=== PATIENT | female | born 1990 | race Caucasian/White ===

== ENCOUNTER 2016-10-30 15:21 | Emergency (ER) | payer MEDICAID ==
[2016-10-30] MEDS ORDERED: KETOROLAC 30 MG/ML VIAL IM ONE (17:40)
[2016-10-30] MEDS ORDERED: ORPHENADRINE CITRATE 60MG/2ML VIAL IM ONE (17:40)
--- NOTE | 2016-10-30 17:41 | Emergency Department Record ---
History of Present Illness - General Chief complaint: Extremity Problem Stated complaint: RT SIDE HIP PAIN Time Seen by Provider: 10/30/16 15:44 Source: Patient Mode of Arrival: Ambulatory Limitations: No limitations - History of Present Illness Initial comments: pt has had l lower back, buttock and hip pain which radiates into her leg. Complaint: Extremity pain, Other (back and buttock and hip) Onset/Timin -: Week(s) Location: Right, Other History of Same: No -: Yes Myalgia Severity scale (1-10): 5 Quality: Sharp Consistency: Intermittent Improves with: Nothing Worsens with: Exertion, Palpation, Walking, Weight bearing Associated Symptoms: Denies other symptoms - Related Data Home Medications Medication Instructions Recorded Confirmed Last Taken Ranitidine HCl [Zantac] 150 mg PO BID 08/20/16 10/30/16 10/30/16 Previous Rx's Medication Instructions Recorded Cyclobenzaprine HCl [Flexeril] 10 mg PO TID #10 tablet 10/30/16 Hydrocodone/Acetaminophen [[place] 1 tab PO Q6H PRN #7 tab 10/30/16 5mg/325mg] Ibuprofen [Motrin 600Mg] 600 mg PO Q6H #20 tablet 10/30/16 Allergies Allergy/AdvReac Type Severity Reaction Status Date / Time Penicillins Allergy "both my Verified 10/30/16 15:28 parents are allergic to it" Travel Screening - Travel/Exposure Within Last 30 Days Have you traveled within the last 30 days?: No - Travel/Exposure Within Last Year Have you traveled outside the [place] in the last year?: No - Additonal Travel Details Have you been exposed to anyone with a communicable illness?: No - Travel Symptoms Symptom Screening: None Review of Systems Reviewed: No additional complaints except as noted below Constitutional: Reports: As per HPI. Denies: Chills, Fever, Malaise, Night sweats, Weakness, Weight change Eyes: Reports: As per HPI. Denies: Eye discharge, Eye pain, Photophobia, Vision change ENT: Reports: As per HPI. Denies: Congestion, Dental pain, Ear pain, Epistaxis , Hearing loss, Throat pain Respiratory: Reports: As per HPI. Denies: Cough, Dyspnea, Hemoptysis, Stridor, Wheezes Cardiovascular: Reports: As per HPI. Denies: Arrhythmia, Chest pain, Dyspnea on exertion, Edema, Murmurs, Orthopnea, Palpitations, Paroxysmal nocturnal dyspnea, Rheumatic Fever, Syncope Endocrine: Reports: As per HPI. Denies: Fatigue, Heat or cold intolerance, Polydipsia, Polyuria Gastrointestinal: Reports: As per HPI. Denies: Abdominal pain, Constipation, Diarrhea, Hematemesis, Hematochezia, Melena, Nausea, Vomiting Genitourinary: Reports: As per HPI. Denies: Abnormal menses, Discharge, Dyspareunia, Dysuria, Frequency, Hematuria, Incontinence, Retention, Urgency Musculoskeletal: Reports: As per HPI. Denies: Arthralgia, Back pain, Gout, Joint swelling, Myalgia, Neck pain Skin: Reports: As per HPI. Denies: Bruising, Change in color, Change in hair/ nails, Lesions, Pruritus, Rash Neurological: Reports: As per HPI. Denies: Abnormal gait, Confusion, Headache, Numbness, Paresthesias, Seizure, Tingling, Tremors, Vertigo, Weakness Psychiatric: Reports: As per HPI. Denies: Anxiety, Auditory hallucinations, Depression, Homicidal thoughts, Suicidal thoughts, Visual hallucinations Hematological/Lymphatic: Reports: As per HPI. Denies: Anemia, Blood Clots, Easy bleeding, Easy bruising, Swollen glands Past Medical History - SOCIAL HISTORY Smoking Status: Current every day smoker Alcohol Use: Rare Drug Use: None - RESPIRATORY Hx Respiratory Disorders: No - CARDIOVASCULAR Hx Cardio Disorders: No - NEURO Hx Neuro Disorders: No - GI Hx GI Disorders: Yes Hx Reflux: Yes - Hx Genitourinary Disorders: No - ENDOCRINE Hx Endocrine Disorders: No - MUSCULOSKELETAL Hx Musculoskeletal Disorders: No - PSYCH Hx Psych Problems: No - HEMATOLOGY/ONCOLOGY Hx Hematology/Oncology Disorders: No Family Medical History Any Significant Family History?: Yes Hx Diabetes: Father Physical Exam - General General Appearance: Alert, Oriented x3, Cooperative, Mild distress - Head Head exam: Normal inspection - Eye Eye exam: Normal appearance, PERRL, EOMI Pupils: Normal accommodation - ENT ENT exam: Normal exam, Mucous membranes moist, Normal external ear exam, Normal orophraynx Ear exam: Normal external inspection. negative: External canal tenderness Nasal Exam: Normal inspection. negative: Discharge, Sinus tenderness Mouth exam: Normal external inspection, Tongue normal Teeth exam: Normal inspection. negative: Dental caries Throat exam: Normal inspection. negative: Tonsillar erythema, Tonsillar exudate - Neck Neck exam: Normal inspection, Full ROM. negative: Tenderness - Respiratory Respiratory exam: Normal lung sounds bilaterally. negative: Respiratory distress - Cardiovascular Cardiovascular Exam: Regular rate, Normal rhythm, Normal heart sounds - GI/Abdominal GI/Abdominal exam: Soft, Normal bowel sounds. negative: Tenderness - Rectal Rectal exam: Deferred - exam: Deferred - Extremities Extremities exam: Normal inspection, Full ROM, Normal capillary refill, Tenderness (tender over r gluteus and r hip) - Back Back exam: Reports: Full ROM, Muscle spasm, Paraspinal tenderness, Tenderness. Denies: Rash noted - Neurological Neurological exam: Alert, CN II-XII intact, Normal gait, Oriented X3 - Psychiatric Psychiatric exam: Normal affect, Normal mood - Skin Skin exam: Dry, Intact, Normal color, Warm Course Vital Signs 10/30/16 15:29 Temperature 98.3 F Pulse Rate 82 Respiratory 18 Rate Blood Pressure 117/68 Pulse Ox 98 Medical Decision Making - Management Options MDM Management: Additional Work-up Planned (e.g. ADM/Transfer/OP Study) - Data Complexity MDM Data: X-Ray Ordered and/or Reviewed - Radiology Data Radiology results: Report reviewed, Image reviewed Disposition Disposition: Discharge Clinical Impression: Lumbar radiculopathy, acute Disposition: Home, Self-Care Condition: (1) Good Instructions: Lumbar Radiculopathy (ED), Core Strengthening Exercises (GEN) Additional Instructions: follow up with family doctor. return sooner if worse. have further evaluation if symptoms persist. Prescriptions: Cyclobenzaprine HCl [Flexeril] 10 mg PO TID #10 tablet Ibuprofen [Motrin 600Mg] 600 mg PO Q6H #20 tablet Hydrocodone/Acetaminophen [[place] 5mg/325mg] 1 tab PO Q6H PRN #7 tab PRN Reason: Pain - General Forms: Patient Portal Access
--- NOTE | 2016-11-02 10:18 | RADIOLOGY REPORT ---
EXAM: RIGHT HIP WITH PELVIS HISTORY: RIGHT HIP AND BACK PAIN FOR THE PAST FEW WEEKS. NO KNOWN INJURY. TECHNIQUE: An AP view of the pelvis and AP and lateral views of the right hip were obtained. Comparison: Previous CT scan of the pelvis dated 01/05/15. Encounter: Not applicable. FINDINGS: The hips are symmetric bilaterally. The joint spaces are preserved. There is no acute fracture, dislocation or significant degenerative change. The bony pelvis appears normal. An IUD is present within the right hemipelvis. This appears similar to the previous CT study. IMPRESSION: NORMAL RIGHT HIP AND PELVIS. JOB NUMBER: [id number] MTD[facility]
--- NOTE | 2016-11-02 10:21 | RADIOLOGY REPORT ---
EXAM: LUMBAR SPINE, AP AND LATERAL VIEWS HISTORY: RIGHT SIDED BACK PAIN AND HIP PAIN FOR PAST FEW WEEKS. NO KNOWN INJURY. TECHNIQUE: AP, lateral and lateral spot views of the lumbar spine were obtained. Comparison: Previous CT scan of the abdomen and pelvis dated 01/05/15. FINDINGS: There are five lumbar vertebral segments. The lumbar intervertebral disk spaces and vertebral body heights are maintained. There is no spondylolisthesis or acute fracture. No significant degenerative changes are appreciated. An IUD projects over the right hemipelvis. IMPRESSION: NORMAL LUMBAR SPINE EXAMINATION. JOB NUMBER: [id number] [employer]
== END 2016-10-30 18:04 | disposition home or self-care (01) ==
LOC: ER 15:21
DX: M54.16 Radiculopathy, lumbar region (principal); M25.551 Pain in right hip
CPT/HCPCS: 99283; 96372; 99284; 72100; 73502; J1885; J2360

== ENCOUNTER 2017-05-26 14:20 | Emergency (ER) | payer MEDICAID ==
[2017-05-26] MEDS ORDERED: DIPHENHYDRAMINE HCL 25 MG CAPSULE PO ONE (14:44)
[2017-05-26] MEDS ORDERED: METHYLPREDNISOLONE PF 125MG/VIAL IM ONE (14:44)
--- NOTE | 2017-05-26 14:50 | Emergency Department Record ---
History of Present Illness - General Chief complaint: Rash Stated complaint: RASH ON FACE/NECK Time Seen by Provider: 05/26/17 14:38 Source: Patient Mode of Arrival: Ambulatory Limitations: No limitations - History of Present Illness Initial comments: pt has a rash at hairline that itches. pt has been using a new haircare product. complaint: Rash Onset/Timin -: Days(s) Location: Face Consistency: Constant Improves with: None Worsens with: None Context: None, New medication (shampoo) Associated symptoms: Itching Treatments Prior to Arrival: None - Related Data Home Medications Medication Instructions Recorded Confirmed Last Taken Ranitidine HCl [Zantac] 150 mg PO BID 08/20/16 05/26/17 10/30/16 Allergies Allergy/AdvReac Type Severity Reaction Status Date / Time Penicillins Allergy "both my Verified 10/30/16 15:28 parents are allergic to it" Travel Screening - Travel/Exposure Within Last 30 Days Have you traveled within the last 30 days?: No Review of Systems Reviewed: No additional complaints except as noted below Constitutional: Reports: As per HPI. Denies: Chills, Fever, Malaise, Night sweats, Weakness, Weight change Eyes: Reports: As per HPI. Denies: Eye discharge, Eye pain, Photophobia, Vision change ENT: Reports: As per HPI. Denies: Congestion, Dental pain, Ear pain, Epistaxis , Hearing loss, Throat pain Respiratory: Reports: As per HPI. Denies: Cough, Dyspnea, Hemoptysis, Stridor, Wheezes Cardiovascular: Reports: As per HPI. Denies: Arrhythmia, Chest pain, Dyspnea on exertion, Edema, Murmurs, Orthopnea, Palpitations, Paroxysmal nocturnal dyspnea, Rheumatic Fever, Syncope Endocrine: Reports: As per HPI. Denies: Fatigue, Heat or cold intolerance, Polydipsia, Polyuria Gastrointestinal: Reports: As per HPI. Denies: Abdominal pain, Constipation, Diarrhea, Hematemesis, Hematochezia, Melena, Nausea, Vomiting Genitourinary: Reports: As per HPI. Denies: Abnormal menses, Discharge, Dyspareunia, Dysuria, Frequency, Hematuria, Incontinence, Retention, Urgency Musculoskeletal: Reports: As per HPI. Denies: Arthralgia, Back pain, Gout, Joint swelling, Myalgia, Neck pain Skin: Reports: As per HPI. Denies: Bruising, Change in color, Change in hair/ nails, Lesions, Pruritus, Rash Neurological: Reports: As per HPI. Denies: Abnormal gait, Confusion, Headache, Numbness, Paresthesias, Seizure, Tingling, Tremors, Vertigo, Weakness Psychiatric: Reports: As per HPI. Denies: Anxiety, Auditory hallucinations, Depression, Homicidal thoughts, Suicidal thoughts, Visual hallucinations Hematological/Lymphatic: Reports: As per HPI. Denies: Anemia, Blood Clots, Easy bleeding, Easy bruising, Swollen glands Past Medical History - SOCIAL HISTORY Smoking Status: Current every day smoker Alcohol Use: None Drug Use: None - RESPIRATORY Hx Respiratory Disorders: No - CARDIOVASCULAR Hx Cardio Disorders: No - NEURO Hx Neuro Disorders: No - GI Hx GI Disorders: Yes Hx Reflux: Yes - Hx Genitourinary Disorders: No - ENDOCRINE Hx Endocrine Disorders: No - MUSCULOSKELETAL Hx Musculoskeletal Disorders: No - PSYCH Hx Psych Problems: No - HEMATOLOGY/ONCOLOGY Hx Hematology/Oncology Disorders: No Family Medical History Any Significant Family History?: Yes Hx Diabetes: Father Physical Exam - General General Appearance: Alert, Oriented x3, Cooperative, No acute distress - Head Head exam: Normal inspection - Eye Eye exam: Normal appearance, PERRL, EOMI Pupils: Normal accommodation - ENT ENT exam: Normal exam, Mucous membranes moist, Normal external ear exam, Normal orophraynx Ear exam: Normal external inspection. negative: External canal tenderness Nasal Exam: Normal inspection. negative: Discharge, Sinus tenderness Mouth exam: Normal external inspection, Tongue normal Teeth exam: Normal inspection. negative: Dental caries Throat exam: Normal inspection. negative: Tonsillar erythema, Tonsillar exudate - Neck Neck exam: Normal inspection, Full ROM. negative: Tenderness - Respiratory Respiratory exam: Normal lung sounds bilaterally. negative: Respiratory distress - Cardiovascular Cardiovascular Exam: Regular rate, Normal rhythm, Normal heart sounds - GI/Abdominal GI/Abdominal exam: Soft, Normal bowel sounds. negative: Tenderness - Rectal Rectal exam: Deferred - exam: Deferred - Extremities Extremities exam: Normal inspection, Full ROM, Normal capillary refill. negative: Tenderness - Back Back exam: Reports: Normal inspection, Full ROM. Denies: Muscle spasm, Rash noted, Tenderness - Neurological Neurological exam: Alert, CN II-XII intact, Normal gait, Oriented X3 - Psychiatric Psychiatric exam: Normal affect, Normal mood - Skin Skin exam: Dry, Intact, Normal color, Rash, Warm Type of lesion: Rash Distribution of rash: Face Description of rash: Erythematous, Macular, Papular Course Vital Signs 05/26/17 14:24 Temperature 98.4 F Pulse Rate 60 Respiratory 18 Rate Blood Pressure 122/77 Pulse Ox 95 Disposition Disposition: Discharge Clinical Impression: Allergic dermatitis Disposition: Home, Self-Care Condition: (1) Good Instructions: Contact Dermatitis (ED) Additional Instructions: follow up with family doctor. return sooner if worse.stop hair care product. benadryl every 6 hours as needed Forms: Patient Portal Access Quality - Quality Measures Quality Measures: N/A - Blood Pressure Screening Does Patient Have Any of the Following: No Blood Pressure Classification: Pre-Hypertensive BP Reading Systolic Measurement: 122 Diastolic Measurement: 77 Screening for High Blood Pressure: < Pre-Hypertensive BP, F/U Documented > [ G8950] Pre-Hypertensive Follow-up Interventions: Follow-up with rescreen every year.
== END 2017-05-26 15:10 | disposition home or self-care (01) ==
LOC: ER 14:20
DX: L23.2 Allergic contact dermatitis due to cosmetics (principal)
CPT/HCPCS: 96372; 99283; J2930

== ENCOUNTER 2018-02-02 22:30 | Emergency (ER) | payer MEDICAID ==
[2018-02-02] MEDS ORDERED: PREDNISONE 20 MG TAB PO ONE (22:47)
--- NOTE | 2018-02-02 22:48 | Emergency Department Record ---
History of Present Illness - General Chief complaint: Rash Stated complaint: RASH BOTH SIDES AND LT LEG Time Seen by Provider: 02/02/18 22:44 Source: Patient Mode of Arrival: Ambulatory Limitations: No limitations - History of Present Illness Initial comments: The patient is here due to a 3 day hx of an itchy rash to her trunk and legs. She has recently been exposed to [facility]. She denies any new medicines, foods , or skin products. The family just got home from [facility] today. MD complaint: Rash Onset/Timin -: Days(s) - Related Data Previous Rx's Medication Instructions Recorded Prednisone [Prednisone 20Mg] 20 mg PO ASDIR #15 tab 02/02/18 Allergies Allergy/AdvReac Type Severity Reaction Status Date / Time Penicillins Allergy "both my Verified 10/30/16 15:28 parents are allergic to it" Travel Screening - Travel/Exposure Within Last 30 Days Have you traveled within the last 30 days?: No - Travel/Exposure Within Last Year Have you traveled outside the [place] in the last year?: No - Additonal Travel Details Have you been exposed to anyone with a communicable illness?: No - Travel Symptoms Symptom Screening: None Review of Systems Constitutional: Denies: Chills, Fever Eyes: Denies: Eye discharge ENT: Denies: Congestion Respiratory: Denies: Cough, Dyspnea Past Medical History - SOCIAL HISTORY Smoking Status: Current every day smoker Alcohol Use: None Drug Use: None - RESPIRATORY Hx Respiratory Disorders: No - CARDIOVASCULAR Hx Cardio Disorders: No - NEURO Hx Neuro Disorders: No - GI Hx GI Disorders: Yes Hx Reflux: Yes - Hx Genitourinary Disorders: No - ENDOCRINE Hx Endocrine Disorders: No - MUSCULOSKELETAL Hx Musculoskeletal Disorders: No - PSYCH Hx Psych Problems: No - HEMATOLOGY/ONCOLOGY Hx Hematology/Oncology Disorders: No Family Medical History Any Significant Family History?: No Hx Diabetes: Father Physical Exam - General General Appearance: Alert, Cooperative, No acute distress - Head Head exam: Atraumatic, Normocephalic, Normal inspection - Eye Eye exam: Normal appearance, PERRL - Neck Neck exam: Normal inspection, Full ROM. negative: Tenderness - Respiratory Respiratory exam: Normal lung sounds bilaterally. negative: Respiratory distress - Cardiovascular Cardiovascular Exam: Regular rate, Normal rhythm, Normal heart sounds - Extremities Extremities exam: Normal inspection, Full ROM, Normal capillary refill. negative: Tenderness - Neurological Neurological exam: Alert. negative: Motor sensory deficit - Skin Skin exam: Rash (There are scattered patches of an erythematous macular papular rash to the trunk and minimally the extremities. It presently is mild and appears to be [facility].) Course Vital Signs 02/02/18 22:38 Temperature 98 F Pulse Rate [ 76 Pulse Ox Probe] Respiratory 20 Rate Blood Pressure 113/81 [Left Arm] Pulse Ox 96 - Reevaluation(s) Reevaluation #1: I did explain to the patient she is to use an OTC antihistamine for the itching and to continue the Prednisone. She is to see her PCP if not better in 3 days. 02/02/18 22:58 Disposition Disposition: Discharge Clinical Impression: [facility] dermatitis Disposition: Home, Self-Care Condition: (2) Stable Instructions: Acute Rash (ED) Additional Instructions: Please use an OTC antihistamine for the itching and continue the Prednisone tomorrow. Please see your family doctor if not better in 3 days. Prescriptions: Prednisone [Prednisone 20Mg] 20 mg PO ASDIR #15 tab Forms: Patient Portal Access Time of Disposition: 22:49 Quality - Quality Measures Quality Measures: N/A - Blood Pressure Screening View Details: Yes Does Patient Have Any of the Following: No Blood Pressure Classification: Pre-Hypertensive BP Reading Systolic Measurement: 113 Diastolic Measurement: 81 Screening for High Blood Pressure: < Pre-Hypertensive BP, F/U Documented > [ G8950] Pre-Hypertensive Follow-up Interventions: Referral to alternative/primary care provider.
== END 2018-02-02 22:57 | disposition home or self-care (01) ==
LOC: ER 22:30
DX: L23.7 Allergic contact dermatitis due to plants, except food (principal); F17.210 Nicotine dependence, cigarettes, uncomplicated
CPT/HCPCS: 99282; J7512

== ENCOUNTER 2018-02-19 08:59 | Emergency (ER) | payer MEDICAID ==
--- NOTE | 2018-02-19 09:19 | Emergency Department Record ---
History of Present Illness - General Chief complaint: ENT Stated complaint: PATINO,SINUS PRESSURE Time Seen by Provider: 02/19/18 09:12 Source: Patient Mode of Arrival: Ambulatory - History of Present Illness Initial comments: cough and congestion for 2 days and sinus pressure with a headache and body aches and influenza going around her work place of [employer] Onset/Timin -: Days(s) Severity: Moderate Severity scale (1-10): 6 Quality: Aching, Other Consistency: Constant Improves with: None Worsens with: None Associated Symptoms: Cough, Other - Related Data Previous Rx's Medication Instructions Recorded Azithromycin 250 mg PO DAILY #6 tablet 02/19/18 Allergies Allergy/AdvReac Type Severity Reaction Status Date / Time Penicillins Allergy "both my Verified 02/19/18 09:02 parents are allergic to it" Travel Screening - Travel/Exposure Within Last 30 Days Have you traveled within the last 30 days?: No - Travel/Exposure Within Last Year Have you traveled outside the [place] in the last year?: No - Additonal Travel Details Have you been exposed to anyone with a communicable illness?: No - Travel Symptoms Symptom Screening: None Review of Systems Reviewed: No additional complaints except as noted below Constitutional: Reports: As per HPI, Malaise. Denies: Chills, Fever, Night sweats, Weakness, Weight change Eyes: Reports: As per HPI. Denies: Eye discharge, Eye pain, Photophobia, Vision change ENT: Reports: As per HPI, Congestion, Throat pain. Denies: Dental pain, Ear pain, Epistaxis, Hearing loss Respiratory: Reports: As per HPI, Cough. Denies: Dyspnea, Hemoptysis, Stridor, Wheezes Cardiovascular: Reports: As per HPI. Denies: Arrhythmia, Chest pain, Dyspnea on exertion, Edema, Murmurs, Orthopnea, Palpitations, Paroxysmal nocturnal dyspnea, Rheumatic Fever, Syncope Endocrine: Reports: As per HPI. Denies: Fatigue, Heat or cold intolerance, Polydipsia, Polyuria Gastrointestinal: Reports: As per HPI. Denies: Abdominal pain, Constipation, Diarrhea, Hematemesis, Hematochezia, Melena, Nausea, Vomiting Genitourinary: Reports: As per HPI. Denies: Abnormal menses, Discharge, Dyspareunia, Dysuria, Frequency, Hematuria, Incontinence, Retention, Urgency Musculoskeletal: Reports: As per HPI, Myalgia. Denies: Arthralgia, Back pain, Gout, Joint swelling, Neck pain Skin: Reports: As per HPI. Denies: Bruising, Change in color, Change in hair/ nails, Lesions, Pruritus, Rash Neurological: Reports: As per HPI. Denies: Abnormal gait, Confusion, Headache, Numbness, Paresthesias, Seizure, Tingling, Tremors, Vertigo, Weakness Psychiatric: Reports: As per HPI. Denies: Anxiety, Auditory hallucinations, Depression, Homicidal thoughts, Suicidal thoughts, Visual hallucinations Hematological/Lymphatic: Reports: As per HPI. Denies: Anemia, Blood Clots, Easy bleeding, Easy bruising, Swollen glands Past Medical History - SOCIAL HISTORY Smoking Status: Current every day smoker Alcohol Use: Occasional Drug Use: None - RESPIRATORY Hx Respiratory Disorders: No - CARDIOVASCULAR Hx Cardio Disorders: No - NEURO Hx Neuro Disorders: No - GI Hx GI Disorders: Yes Hx Reflux: Yes - Hx Genitourinary Disorders: No - ENDOCRINE Hx Endocrine Disorders: No - MUSCULOSKELETAL Hx Musculoskeletal Disorders: No - PSYCH Hx Psych Problems: No - HEMATOLOGY/ONCOLOGY Hx Hematology/Oncology Disorders: No Family Medical History Any Significant Family History?: Yes Hx Diabetes: Father Physical Exam - General General Appearance: Alert, Oriented x3, Cooperative, No acute distress - Head Head exam: Normal inspection - Eye Eye exam: Normal appearance, PERRL Pupils: Normal accommodation - ENT ENT exam: Normal exam, Mucous membranes moist, Normal external ear exam, Normal orophraynx, TM's normal bilaterally Ear exam: Normal external inspection. negative: External canal tenderness Nasal Exam: Normal inspection. negative: Discharge, Sinus tenderness Mouth exam: Normal external inspection, Tongue normal Teeth exam: Normal inspection. negative: Dental caries Throat exam: Normal inspection. negative: Tonsillar erythema, Tonsillar exudate - Neck Neck exam: Normal inspection, Full ROM. negative: Tenderness - Respiratory Respiratory exam: Normal lung sounds bilaterally. negative: Respiratory distress - Cardiovascular Cardiovascular Exam: Regular rate, Normal rhythm, Normal heart sounds - GI/Abdominal GI/Abdominal exam: Soft, Normal bowel sounds. negative: Tenderness - Rectal Rectal exam: Deferred - exam: Deferred - Extremities Extremities exam: Normal inspection, Full ROM, Normal capillary refill. negative: Tenderness - Back Back exam: Reports: Normal inspection, Full ROM. Denies: Muscle spasm, Rash noted, Tenderness - Neurological Neurological exam: Alert, Normal gait, Oriented X3, Reflexes normal - Psychiatric Psychiatric exam: Normal affect, Normal mood - Skin Skin exam: Dry, Intact, Normal color, Warm Course Vital Signs 02/19/18 09:03 Temperature 97.7 F Pulse Rate 94 H Respiratory 20 Rate Blood Pressure 111/62 Pulse Ox 97 Disposition Clinical Impression: Bronchitis Sinusitis Qualifiers: Sinusitis location: unspecified location Chronicity: acute Recurrence: non- recurrent Qualified Code(s): J01.90 - Acute sinusitis, unspecified Disposition: Home, Self-Care Return To Work/School Note Provided: Yes Condition: (1) Good Instructions: Sinusitis (ED) Additional Instructions: follow up with family in 5 days sooner if worse Prescriptions: Azithromycin 250 mg PO DAILY #6 tablet Forms: Patient Portal Access Time of Disposition: 09:52 Quality - Quality Measures Quality Measures: N/A - Blood Pressure Screening Does Patient Have Any of the Following: No Blood Pressure Classification: Normal BP Reading Systolic Measurement: 111 Diastolic Measurement: 62 Screening for High Blood Pressure: < Normal BP, F/U Not Required > [G8783]
[2018-02-19 09:43] LABS: INFLUENZA A NEGATIVE (NEGATIVE); INFLUENZA B NEGATIVE (NEGATIVE); STREP A SCREEN NEGATIVE (NEGATIVE)
== END 2018-02-19 10:34 | disposition home or self-care (01) ==
LOC: ER 08:59
DX: J20.9 Acute bronchitis, unspecified (principal); J01.90 Acute sinusitis, unspecified; R51 Headache; F17.210 Nicotine dependence, cigarettes, uncomplicated
CPT/HCPCS: 87400; 87880; 99282

== ENCOUNTER 2018-03-31 06:34 | Day surgery (SDC) | payer MEDICAID ==
[~2018-03-31 06:34] MED LIST: FAMOTIDINE 20MG TABLET PO ONE; METOCLOPRAMIDE 10 MG TABLET PO ONE
[2018-03-31] MEDS ORDERED: KETOROLAC 30 MG/ML VIAL IVP ONE (06:35)
[2018-03-31] MEDS ORDERED: PROPOFOL 10 MG/ML VIAL IV ONE (06:35)
[2018-03-31] MEDS ORDERED: ONDANSETRON HCL IV 4 MG/2 ML VIAL IVP ONE (06:35)
[2018-03-31] MEDS ORDERED: LIDOCAINE 1% MDV (10MG/ML) 20ML VIAL SQ ONE (06:35)
[2018-03-31] MEDS ORDERED: SEVOFLURANE 250 ML INH ONE (06:35)
[2018-03-31] MEDS ORDERED: MIDAZOLAM HCL 2MG/2ML VIAL IV ONE (06:35)
--- NOTE | 2018-03-31 19:48 | Operative Note ---
DATE OF SURGERY: 03/31/2018. PREOPERATIVE DIAGNOSIS: Retained intrauterine device. POSTOPERATIVE DIAGNOSIS: Retained intrauterine device. PROCEDURE PERFORMED: Hysteroscopic removal of intrauterine device with insertion of a new intrauterine device. ANESTHESIA: General. COMPLICATIONS: None. ESTIMATED BLOOD LOSS: Minimal. PROCEDURE: The patient was prepped for surgery and brought back to the operating suite. She was placed under general anesthesia. She was sterilely prepped and draped in the dorsal lithotomy position. A weighted speculum was placed. 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 The cervix was serially dilated to #14 German. The hysteroscope was then placed. I saw the strings immediately in the endocervical canal. I grasped the strings and removed the intrauterine device. The uterus then sounded to 12 cm. A new intrauterine device was placed. The patient was then awakened from general anesthesia and brought back to the recovery room in satisfactory condition. Sponge and instrument counts were correct. It is noted that I did cut the string on the intrauterine device approximately 2.0 cm outside the cervix. STEPH
== END 2018-03-31 08:45 | disposition home or self-care (01) ==
LOC: SUR 06:34
PROVIDERS: ATTEND Obstetrics & Gynecology
DX: T83.32XA Displacement of intrauterine contraceptive device, initial encounter (principal); Z30.014 Encounter for initial prescription of intrauterine contraceptive device
CPT/HCPCS: 81025; J1885; J2405

== ENCOUNTER 2018-05-17 14:34 | Emergency (ER) | payer MEDICAID ==
--- NOTE | 2018-05-17 14:44 | Emergency Department Record ---
History of Present Illness - General Chief Complaint: Abdominal Pain Stated Complaint: SHARP GROIN PAIN Time Seen by Provider: 05/17/18 14:41 Source: Patient Mode of Arrival: Ambulatory Limitations: No limitations - History of Present Illness Initial Comments: The patient is here due to sharp pelvic pain for 3 days. The pain is intermittent and is not associated with nausea, vomiting, diarrhea, vaginal bleeding, or discharge. She also denies any dysuria, hematuria or back pain. The patient has had a normal appetite and denies any fever. MD Complaint: Abdominal pain Onset/Timin -: Days(s) Location: Other Radiation: None Migration to: No migration Severity scale (1-10): 6 Quality: Sharp Consistency: Constant Improves With: Nothing Worsens With: Nothing Associated Symptoms: Denies other symptoms - Related Data Patient : No Previous Rx's Medication Instructions Recorded Naproxen [Naprosyn] 500 mg PO BID #14 tablet. 05/17/18 Allergies Allergy/AdvReac Type Severity Reaction Status Date / Time latex Allergy RASH Verified 03/31/18 07:13 Travel Screening - Travel/Exposure Within Last 30 Days Have you traveled within the last 30 days?: No Review of Systems Constitutional: Denies: Chills, Fever Eyes: Denies: Eye discharge ENT: Denies: Congestion Respiratory: Denies: Cough, Dyspnea Past Medical History - SOCIAL HISTORY Smoking Status: Current every day smoker - RESPIRATORY Hx Respiratory Disorders: Yes Hx Bronchitis: Yes - CARDIOVASCULAR Hx Cardio Disorders: No - NEURO Hx Neuro Disorders: No - GI Hx GI Disorders: Yes Hx Reflux: Yes (fair control) - Hx Genitourinary Disorders: No - ENDOCRINE Hx Endocrine Disorders: No - MUSCULOSKELETAL Hx Musculoskeletal Disorders: No - PSYCH Hx Psych Problems: No - HEMATOLOGY/ONCOLOGY Hx Hematology/Oncology Disorders: No Family Medical History Any Significant Family History?: Yes Hx Diabetes: Father Physical Exam - General General Appearance: Alert, Oriented x3, Cooperative, No acute distress - Head Head exam: Atraumatic, Normocephalic, Normal inspection - Eye Eye exam: Normal appearance, PERRL, EOMI - Neck Neck exam: Normal inspection, Full ROM. negative: Tenderness - Respiratory Respiratory exam: Normal lung sounds bilaterally. negative: Respiratory distress - Cardiovascular Cardiovascular Exam: Regular rate, Normal rhythm, Normal heart sounds - GI/Abdominal GI/Abdominal exam: Soft, Tenderness (There is mild diffuse lower abdominal/ pelvic tenderness to palpation but the abdomen is very soft.). negative: Rebound, Rigid - exam: Normal bimanual exam, Normal external exam, Normal speculum exam. negative: Abnormal external exam, Adnexal mass (L), Adnexal mass (R), Adnexal tenderness (L), Adnexal tenderness (R), Cervical discharge, cervical motion tenderness, Enlarged uterus, Vaginal bleeding, Vaginal discharge - Extremities Extremities exam: Normal inspection, Full ROM, Normal capillary refill. negative: Tenderness Image of Full Body: 1 - Area of pain and tenderness. - Neurological Neurological exam: Alert. negative: Motor sensory deficit Course Vital Signs 05/17/18 14:37 Temperature 98.3 F Pulse Rate 82 Respiratory 16 Rate Blood Pressure 118/79 Pulse Ox 96 - Reevaluation(s) Reevaluation #1: The patient is doing better at this time. Her pain is improved with the Toradol. 05/17/18 15:57 Reevaluation #2: The patient is doing much better at this time. Presently the pain has resolved with the Toradol and she is able to ambulate with no pain or discomfort. I did discuss the need for a pelvic US and did recommend transfer to another hospital for the test. The reason I feel she needs the test is to make sure her ovaries are normal with normal blood flow. The patient states she needs to go to work tonight so she is refusing to follow the plan for transfer. I explained to her that the risk of NOT doing the US today is that she could have an ovarian torsion, mass, or infection that could lead to ovary and the need for surgery and chronic pain. The patient has proper decision making capacity and understands and accepts the risks of refusing the transfer. She will return to the ER for any worsening symptoms. 05/17/18 16:14 Medical Decision Making - Data Complexity MDM Data: Labs Ordered and/or Reviewed - Lab Data Result diagrams: 05/17/18 15:04 05/17/18 15:04 Disposition Disposition: Discharge Clinical Impression: Pelvic pain Disposition: Home, Self-Care Condition: (1) Good Instructions: Pelvic Pain (ED) Additional Instructions: Please take the Naprosyn for pain. 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 Return to the ER for any worsening symptoms. If not better by Saturday please return to the ER for recheck and a pelvic US. Prescriptions: Naproxen [Naprosyn] 500 mg PO BID #14 tablet.dr Forms: Patient Portal Access Time of Disposition: 16:13 Quality - Quality Measures Quality Measures: N/A - Blood Pressure Screening View Details: Yes Does Patient Have Any of the Following: No Blood Pressure Classification: Normal BP Reading Systolic Measurement: 118 Diastolic Measurement: 79 Screening for High Blood Pressure: < Normal BP, F/U Not Required > [G8783]
[2018-05-17 15:12] LABS: BASO % 0.3 % (0-6); EOS % 2.7 % (0-6); GRAN % 57.4 % (47-80); HEMATOCRIT 42.4 % (35.0-47.0); HEMOGLOBIN 14.1 gm/dl (11.6-16.0); LYMPH % 31.2 % (16-45); MEAN CELL VOLUME 89.6 fl (81-97); MEAN CORPUSCULAR HEMOGLOBIN 29.8 pg (27-33); MEAN CORPUSCULAR HGB CONC 33.3 g/dl (32-36); MEAN PLATELET VOLUME 11.2 fl (7.4-10.4); MONO % 8.4 % (0-9); PLATELET COUNT 176 K/uL (130-400); RED BLOOD COUNT 4.73 M/uL (3.80-5.40); RED CELL DISTRIBUTION WIDTH 13.3 % (11.5-14.5); WHITE BLOOD COUNT W/O DIFF 10.4 K/uL (4.2-12.2)
[2018-05-17 15:21] LABS: BLOOD UREA NITROGEN 14 mg/dL (6-20); CREATININE 0.9 mg/dL (0.5-0.9); EST GLOMERULAR FILTRATION RATE > 60 mL/min
[2018-05-17 15:22] LABS: TOTAL PROTEIN 6.9 g/dL (6.6-8.7)
[2018-05-17 15:24] LABS: GLUCOSE,RANDOM 91 mg/dL (74-109)
[2018-05-17 15:27] LABS: ALB/GLOB RATIO 1.5 (1.1-1.8); ALBUMIN 4.1 g/dL (4.0-5.0); ALKALINE PHOSPHATASE 77 U/L (35-104); ALT/SGPT 12 U/L (<33); AST/SGOT 8 U/L (10.0-35.0); C-REACTIVE PROTEIN 1.41 mg/dL (<0.5)
[2018-05-17 15:30] LABS: URINE APPEARANCE SL CLOUDY; URINE BILIRUBIN NEGATIVE (NEGATIVE); URINE BLOOD NEGATIVE (NEGATIVE); URINE COLOR YELLOW; URINE GLUCOSE (UA) NEGATIVE (NEGATIVE); URINE KETONE NEGATIVE (NEGATIVE); URINE LEUKOCYTE ESTERASE NEGATIVE (NEGATIVE); URINE NITRITE NEGATIVE (NEGATIVE); URINE PROTEIN NEGATIVE (NEGATIVE)
[2018-05-17 15:33] LABS: HCG,QUALITATIVE URINE NEGATIVE (NEGATIVE)
[2018-05-17] MEDS ORDERED: KETOROLAC 30 MG/ML VIAL IM ONE (15:34)
[2018-05-19 16:21] LABS: GC SPECIMEN TYPE Vaginal
--- NOTE | 2018-05-21 07:32 | Emergency Department Record ---
History of Present Illness - General Chief Complaint: Abdominal Pain Stated Complaint: SHARP GROIN PAIN Time Seen by Provider: 05/17/18 14:41 Source: Patient Mode of Arrival: Ambulatory Limitations: No limitations - History of Present Illness Complaint: Abdominal pain Onset/Timin -: Days(s) Location: Other Radiation: None Migration to: No migration Severity scale (1-10): 6 Quality: Sharp Consistency: Constant Improves With: Nothing Worsens With: Nothing Associated Symptoms: Denies other symptoms - Related Data Patient : No Previous Rx's Medication Instructions Recorded Naproxen [Naprosyn] 500 mg PO BID #14 tablet. 05/17/18 Allergies Allergy/AdvReac Type Severity Reaction Status Date / Time latex Allergy RASH Verified 05/19/18 15:50 Travel Screening - Travel/Exposure Within Last 30 Days Have you traveled within the last 30 days?: No Review of Systems Constitutional: Denies: Chills, Fever Eyes: Denies: Eye discharge ENT: Denies: Congestion Respiratory: Denies: Cough, Dyspnea Cardiovascular: Denies: Chest pain Endocrine: Denies: Fatigue Gastrointestinal: Reports: Abdominal pain. Denies: Diarrhea, Nausea, Vomiting Genitourinary: Denies: Discharge Musculoskeletal: Denies: Back pain Skin: Denies: Bruising Past Medical History - SOCIAL HISTORY Smoking Status: Current every day smoker - RESPIRATORY Hx Respiratory Disorders: Yes Hx Bronchitis: Yes - CARDIOVASCULAR Hx Cardio Disorders: No - NEURO Hx Neuro Disorders: No - GI Hx GI Disorders: Yes Hx Reflux: Yes (fair control) - Hx Genitourinary Disorders: No - ENDOCRINE Hx Endocrine Disorders: No - MUSCULOSKELETAL Hx Musculoskeletal Disorders: No - PSYCH Hx Psych Problems: No - HEMATOLOGY/ONCOLOGY Hx Hematology/Oncology Disorders: No Family Medical History Any Significant Family History?: Yes Hx Diabetes: Father Physical Exam - General Limitations: No limitations Course Vital Signs 05/17/18 05/17/18 14:37 16:15 Temperature 98.3 F 98 F Pulse Rate 82 Pulse Rate [ 72 Pulse Ox Probe] Respiratory 16 114 H Rate Blood Pressure 118/79 Blood Pressure 114/84 [Left] Pulse Ox 96 97 Medical Decision Making - Lab Data Result diagrams: 05/17/18 15:04 05/17/18 15:04 Lab Results 05/17/18 05/17/18 05/17/18 Range/Units 15:04 15:04 15:20 WBC 10.4 (4.2-12.2) K/uL RBC 4.73 (3.80-5.40) M/uL Hgb 14.1 (11.6-16.0) gm/dl Hct 42.4 (35.0-47.0) % MCV 89.6 (81-97) fl MCH 29.8 (27-33) pg MCHC 33.3 (32-36) g/dl RDW 13.3 (11.5-14.5) % Plt Count 176 (130-400) K/uL MPV 11.2 H (7.4-10.4) fl Gran % 57.4 (47-80) % Lymphocytes % 31.2 (16-45) % Monocytes % 8.4 (0-9) % Eosinophils % 2.7 (0-6) % Basophils % 0.3 (0-6) % Sodium 139 (136-145) mmol/L Potassium 3.7 (3.4-4.5) mmol/L Chloride 103 (98-107) mmol/L Carbon Dioxide 25.0 (22-29) mmol/L Anion Gap 11.0 (7-16) BUN 14 (6-20) mg/dL Creatinine 0.9 (0.5-0.9) mg/dL Estimated GFR > 60 mL/min Random Glucose 91 (74-109) mg/dL Calcium 8.9 (8.6-10.0) mg/dL Total Bilirubin 0.20 (0.2-1.0) mg/dL AST 8 L (10.0-35.0) U/L ALT 12 (<33) U/L Alkaline Phosphatase 77 (35-104) U/L C-Reactive Protein 1.41 H (<0.5) mg/dL Total Protein 6.9 (6.6-8.7) g/dL Albumin 4.1 (4.0-5.0) g/dL Globulin 2.8 (1.4-4.8) gm/dL Albumin/Globulin Ratio 1.5 (1.1-1.8) Urine Color Yellow Urine Appearance Sl cloudy Urine pH 7.0 (5.0-8.0) Ur Specific Pana 1.020 (1.002-1.030) Urine Protein Negative (NEGATIVE) Urine Glucose (UA) Negative (NEGATIVE) Urine Ketones Negative (NEGATIVE) Urine Blood Negative (NEGATIVE) Urine Nitrite Negative (NEGATIVE) Urine Bilirubin Negative (NEGATIVE) Urine Urobilinogen 1.0 (0.20 - 1.00) E.U./dL Ur Leukocyte Esterase Negative (NEGATIVE) Urine HCG, Qual Negative (NEGATIVE) Wet Prep (NONE SEEN) Chlamydia Spec Info C.trachomatis RNA (Negative) N.gonorrhoeae DNA (JUNO) (Negative) 05/17/18 05/17/18 Range/Units 15:50 15:50 WBC (4.2-12.2) K/uL RBC (3.80-5.40) M/uL Hgb (11.6-16.0) gm/dl Hct (35.0-47.0) % MCV (81-97) fl MCH (27-33) pg MCHC (32-36) g/dl RDW (11.5-14.5) % Plt Count (130-400) K/uL MPV (7.4-10.4) fl Gran % (47-80) % Lymphocytes % (16-45) % Monocytes % (0-9) % Eosinophils % (0-6) % Basophils % (0-6) % Sodium (136-145) mmol/L Potassium (3.4-4.5) mmol/L Chloride (98-107) mmol/L Carbon Dioxide (22-29) mmol/L Anion Gap (7-16) BUN (6-20) mg/dL Creatinine (0.5-0.9) mg/dL Estimated GFR mL/min Random Glucose (74-109) mg/dL Calcium (8.6-10.0) mg/dL Total Bilirubin (0.2-1.0) mg/dL AST (10.0-35.0) U/L ALT (<33) U/L Alkaline Phosphatase (35-104) U/L C-Reactive Protein (<0.5) mg/dL Total Protein (6.6-8.7) g/dL Albumin (4.0-5.0) g/dL Globulin (1.4-4.8) gm/dL Albumin/Globulin Ratio (1.1-1.8) Urine Color Urine Appearance Urine pH (5.0-8.0) Ur Specific Pana (1.002-1.030) Urine Protein (NEGATIVE) Urine Glucose (UA) (NEGATIVE) Urine Ketones (NEGATIVE) Urine Blood (NEGATIVE) Urine Nitrite (NEGATIVE) Urine Bilirubin (NEGATIVE) Urine Urobilinogen (0.20 - 1.00) E.U./dL Ur Leukocyte Esterase (NEGATIVE) Urine HCG, Qual (NEGATIVE) Wet Prep No trich or yeast (NONE SEEN) Chlamydia Spec Info Vaginal C.trachomatis RNA Negative (Negative) N.gonorrhoeae DNA (JUNO) Negative (Negative) Disposition Clinical Impression: Pelvic pain Disposition: Home, Self-Care Condition: (1) Good Instructions: Pelvic Pain (ED) Additional Instructions: Please take the Naprosyn for pain. 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 Return to the ER for any worsening symptoms. If not better by Saturday please return to the ER for recheck and a pelvic US. Prescriptions: Naproxen [Naprosyn] 500 mg PO BID #14 tablet.dr Forms: Patient Portal Access Quality - Quality Measures Quality Measures: N/A - Blood Pressure Screening View Details: Yes Does Patient Have Any of the Following: No Blood Pressure Classification: Normal BP Reading Systolic Measurement: 118 Diastolic Measurement: 79 Screening for High Blood Pressure: < Normal BP, F/U Not Required > [G8783]
== END 2018-05-17 16:22 | disposition home or self-care (01) ==
LOC: ER 14:34
DX: R10.2 Pelvic and perineal pain (principal); F17.210 Nicotine dependence, cigarettes, uncomplicated
CPT/HCPCS: 80053; 81003; 81025; 85025; 86140; 87210; 96372; 99284; J1885

== ENCOUNTER 2018-05-19 15:30 | Emergency (ER) | payer MEDICAID ==
--- NOTE | 2018-05-19 15:50 | Emergency Department Record ---
History of Present Illness - General Chief Complaint: Recheck - Other Stated Complaint: ERIS Time Seen by Provider: 05/19/18 15:34 Source: Patient Mode of arrival: Ambulatory Limitations: No limitations - History of Present Illness Initial Comments: Pt returns for US exam that was not available on prior visit. At that time the pt had pelvic pain on presentation. "It went away with the medicine they gave me and it has not returned". No fever, discharge, bleeding. Pt with IUD that was changed in March 2018. She has no new complaint. Onset/Timin -: Days(s) Returns Today for: Other Symptoms Since Prior Visit: No new symptoms Associated Symptoms: Abdominal pain - Related Data Previous Rx's Medication Instructions Recorded Naproxen [Naprosyn] 500 mg PO BID #14 tablet. 05/17/18 Allergies Allergy/AdvReac Type Severity Reaction Status Date / Time latex Allergy RASH Verified 05/19/18 15:50 Travel Screening - Travel/Exposure Within Last 30 Days Have you traveled within the last 30 days?: No Review of Systems Constitutional: Denies: Chills, Fever, Weakness Eyes: Denies: Eye discharge, Vision change ENT: Denies: Congestion Respiratory: Denies: Cough, Dyspnea Cardiovascular: Denies: Arrhythmia, Chest pain Endocrine: Denies: Fatigue Gastrointestinal: Reports: As per HPI Genitourinary: Denies: Abnormal menses, Discharge, Dyspareunia, Dysuria, Frequency, Retention, Urgency Musculoskeletal: Denies: Arthralgia, Back pain Skin: Denies: Bruising Neurological: Denies: Abnormal gait, Headache Psychiatric: Denies: Anxiety Hematological/Lymphatic: Denies: Anemia Past Medical History - SOCIAL HISTORY Smoking Status: Current every day smoker Alcohol Use: None Drug Use: None - RESPIRATORY Hx Respiratory Disorders: Yes Hx Bronchitis: Yes - CARDIOVASCULAR Hx Cardio Disorders: No - NEURO Hx Neuro Disorders: No - GI Hx GI Disorders: Yes Hx Reflux: Yes (fair control) - Hx Genitourinary Disorders: No - ENDOCRINE Hx Endocrine Disorders: No - MUSCULOSKELETAL Hx Musculoskeletal Disorders: No - PSYCH Hx Psych Problems: No - HEMATOLOGY/ONCOLOGY Hx Hematology/Oncology Disorders: No Family Medical History Any Significant Family History?: Yes Hx Diabetes: Father Physical Exam - General General Appearance: Alert, Oriented x3, Cooperative - Head Head exam: Atraumatic - Eye Eye exam: Normal appearance, PERRL, EOMI - ENT ENT exam: Mucous membranes moist, Normal external ear exam, Normal orophraynx, TM's normal bilaterally - Neck Neck exam: Normal inspection. negative: Lymphadenopathy - Respiratory Respiratory exam: Normal lung sounds bilaterally. negative: Rhonchi, Wheezes - Cardiovascular Cardiovascular Exam: Regular rate, Normal rhythm - GI/Abdominal GI/Abdominal exam: Soft, Normal bowel sounds. negative: Guarding, Rebound, Tenderness - exam: negative: Deferred (exam performed here 2 days prior. ) - Extremities Extremities exam: Normal inspection - Back Back exam: Reports: Normal inspection - Neurological Neurological exam: Alert, Normal gait, Oriented X3 - Psychiatric Psychiatric exam: Normal affect - Skin Skin exam: Normal color Course Vital Signs 05/19/18 15:45 Temperature 98.2 F Pulse Rate 82 Respiratory 20 Rate Blood Pressure 132/71 Pulse Ox 98 - Reevaluation(s) Reevaluation #1: 05/19/18 17:24 pt returns for US exam of pelvis. IUD in uterus. Difficult exam per US tech. Pt returns from US without complaints. Has good follow up with Dr. Shabazz OB/ SALES ANALYST. Pt to see Dr. Shabazz in 1-2 days. Return to the ED sooner if worse. Medical Decision Making - Data Complexity MDM Data: EKG Ordered and/or Reviewed - Radiology Data Radiology results: Report reviewed (dominate follicle right overy, IUD in uterus , rest normal. ) Disposition Disposition: Discharge Clinical Impression: Pelvic pain Disposition: Home, Self-Care Condition: (1) Good Instructions: Abdominal Pain (ED) Additional Instructions: Follow up with Dr. Shabazz in 1-2 days. Return to the ED as needed for pain or any concern. Forms: Patient Portal Access Quality - Quality Measures Quality Measures: N/A - Blood Pressure Screening Does Patient Have Any of the Following: No Blood Pressure Classification: Pre-Hypertensive BP Reading Systolic Measurement: 132 Diastolic Measurement: 71 Screening for High Blood Pressure: < Pre-Hypertensive BP, F/U Documented > [ G8950] Pre-Hypertensive Follow-up Interventions: Follow-up with rescreen every year.
--- NOTE | 2018-05-20 16:27 | ULTRASOUND REPORT ---
DATE: 05/19/2018. EXAM: PELVIC ULTRASOUND. HISTORY: Pelvic pain for three days. TECHNIQUE: Transvaginal and transabdominal sonographic evaluation of the pelvis was performed using Grayscale imaging with the addition of color flow Doppler and spectral analysis. COMPARISON: None. ENCOUNTER: Initial. FINDINGS: The uterus measures 13.0 x 3.4 x 5.7 cm. Intrauterine device within the endometrium. The endometrial stripe measurements are within normal limits. There is a dominant follicle in the right ovary measuring 2.0 cm. There is normal arterial and venous flow to both ovaries. The right ovary measures 5.0 x 2.5 x 2.3 cm. The left ovary is not visualized. IMPRESSION: INTRAUTERINE DEVICE WITHIN THE ENDOMETRIAL CANAL. NONVISUALIZATION OF THE LEFT OVARY. DOMINANT FOLLICLE IN THE RIGHT OVARY MEASURING 2.0 CM. JOB NUMBER: [id number] MTDD
== END 2018-05-19 17:51 | disposition home or self-care (01) ==
LOC: ER 15:30
DX: R10.2 Pelvic and perineal pain (principal); F17.210 Nicotine dependence, cigarettes, uncomplicated
CPT/HCPCS: 76830; 76856; 99282

== ENCOUNTER 2018-09-03 13:01 | Emergency (ER) | payer MEDICAID ==
--- NOTE | 2018-09-03 13:31 | Emergency Department Record ---
History of Present Illness - General Chief complaint: ENT Stated complaint: SORE THROAT Time Seen by Provider: 09/03/18 13:23 Source: Patient Mode of Arrival: Ambulatory Limitations: No limitations - History of Present Illness Initial comments: The patient is here due to a ST and mild cough for 2 days. She denies any fever , chills, SOB, CP or sputum production. complaint: Sore throat Onset/Timin -: Days(s) Severity: Mild Improves with: None Worsens with: None - Related Data Previous Rx's Medication Instructions Recorded Prednisone [Prednisone 20Mg] 40 mg PO DAILY #8 tab 09/03/18 Allergies Allergy/AdvReac Type Severity Reaction Status Date / Time latex Allergy RASH Verified 09/03/18 13:19 Travel Screening - Travel/Exposure Within Last 30 Days Have you traveled within the last 30 days?: No - Travel/Exposure Within Last Year Have you traveled outside the [place] in the last year?: No - Additonal Travel Details Have you been exposed to anyone with a communicable illness?: No - Travel Symptoms Symptom Screening: None Review of Systems Constitutional: Denies: Chills, Fever Eyes: Denies: Eye discharge ENT: Reports: Throat pain. Denies: Congestion Respiratory: Reports: Cough. Denies: Dyspnea Past Medical History - SOCIAL HISTORY Smoking Status: Current every day smoker Alcohol Use: Rare Drug Use: None - RESPIRATORY Hx Respiratory Disorders: Yes Hx Bronchitis: Yes - CARDIOVASCULAR Hx Cardio Disorders: No - NEURO Hx Neuro Disorders: No - GI Hx GI Disorders: Yes Hx Reflux: Yes (fair control) - Hx Genitourinary Disorders: No - ENDOCRINE Hx Endocrine Disorders: No - MUSCULOSKELETAL Hx Musculoskeletal Disorders: No - PSYCH Hx Psych Problems: No - HEMATOLOGY/ONCOLOGY Hx Hematology/Oncology Disorders: No Family Medical History Any Significant Family History?: No Hx Diabetes: Father Physical Exam - General General Appearance: Alert, Oriented x3, Cooperative, No acute distress - Head Head exam: Atraumatic, Normocephalic, Normal inspection - Eye Eye exam: Normal appearance, PERRL, EOMI - ENT ENT exam: Normal exam, Mucous membranes moist, Normal external ear exam, Normal orophraynx, TM's normal bilaterally Throat exam: Normal inspection. negative: Tonsillar erythema, Tonsillomegaly, Tonsillar exudate - Neck Neck exam: Normal inspection, Full ROM. negative: Lymphadenopathy, Meningismus , Tenderness - Respiratory Respiratory exam: Normal lung sounds bilaterally. negative: Respiratory distress Course Vital Signs 09/03/18 13:12 Temperature 97.9 F Pulse Rate 78 Respiratory 18 Rate Blood Pressure 125/71 Pulse Ox 99 - Reevaluation(s) Reevaluation #1: I did discuss the neg Strep with the patient and the need for F/U next week if not better. 09/03/18 13:44 Medical Decision Making - Data Complexity MDM Data: Labs Ordered and/or Reviewed (Strep: Neg) Disposition Disposition: Discharge Clinical Impression: Viral URI with cough Disposition: Home, Self-Care Condition: (2) Stable Instructions: Upper Respiratory Infection (ED) Additional Instructions: Please take Tylenol or Motrin for pain and use the Prednisone as directed. Please see your family doctor if not better in 3 days. Return to the ER for any worsening symptoms. Prescriptions: Prednisone [Prednisone 20Mg] 40 mg PO DAILY #8 tab Forms: Patient Portal Access Time of Disposition: 13:46 Quality - Quality Measures Quality Measures: N/A - Blood Pressure Screening View Details: Yes Does Patient Have Any of the Following: No Blood Pressure Classification: Pre-Hypertensive BP Reading Systolic Measurement: 125 Diastolic Measurement: 71 Screening for High Blood Pressure: < Pre-Hypertensive BP, F/U Documented > [ G8950] Pre-Hypertensive Follow-up Interventions: Referral to alternative/primary care provider.
== END 2018-09-03 14:01 | disposition home or self-care (01) ==
LOC: ER 13:01
DX: J06.9 Acute upper respiratory infection, unspecified (principal); R05 Cough; F17.210 Nicotine dependence, cigarettes, uncomplicated
CPT/HCPCS: 87880; 99282

== ENCOUNTER 2018-09-16 09:18 | Emergency (ER) | payer MEDICAID ==
--- NOTE | 2018-09-16 09:27 | Emergency Department Record ---
History of Present Illness - General Chief Complaint: Cough Stated Complaint: URI Time Seen by Provider: 09/16/18 09:23 Source: Patient Mode of Arrival: Ambulatory Limitations: No limitations - History of Present Illness Initial Comments: 28 yo female presents with 2 weeks of cough. The cough is minimally productive. She has a persistent sore throat as well. She had a negative strep swab on 09/03. No rash or edema. She has some body aches. She is a smoker. MD Complaint: Cough, Nasal congestion, Sore throat -: Week(s) (2) Severity: Moderate Quality: Aching Consistency: Constant Improves With: Other Worsens With: Nothing Context: Other Associated Symptoms: Cough, Hoarseness, Nasal congestion, Sore throat Treatments Prior to Arrival: None - Related Data Previous Rx's Medication Instructions Recorded Prednisone [Prednisone 20Mg] 40 mg PO DAILY #8 tab 09/03/18 Azithromycin [Zithromax] 250 mg PO DAILY #4 tab 09/16/18 Benzonatate [Tessalon] 2 cap PO Q8H PRN #24 cap 09/16/18 Allergies Allergy/AdvReac Type Severity Reaction Status Date / Time latex Allergy RASH Verified 09/03/18 13:19 Review of Systems Constitutional: Reports: Chills, Fever ENT: Reports: Congestion, Throat pain Respiratory: Reports: Cough. Denies: Dyspnea, Hemoptysis Cardiovascular: Denies: Chest pain, Palpitations, Syncope Endocrine: Denies: Fatigue Gastrointestinal: Denies: Abdominal pain, Diarrhea, Nausea, Vomiting Genitourinary: Denies: Dysuria, Retention, Urgency Musculoskeletal: Denies: Arthralgia, Myalgia Skin: Denies: Bruising, Change in color, Rash Neurological: Denies: Headache Psychiatric: Denies: Anxiety Hematological/Lymphatic: Denies: Blood Clots, Easy bleeding, Easy bruising, Swollen glands Past Medical History - SOCIAL HISTORY Smoking Status: Current every day smoker Drug Use: None - RESPIRATORY Hx Respiratory Disorders: Yes Hx Bronchitis: Yes - CARDIOVASCULAR Hx Cardio Disorders: No - NEURO Hx Neuro Disorders: No - GI Hx GI Disorders: Yes Hx Reflux: Yes (fair control) - Hx Genitourinary Disorders: No - ENDOCRINE Hx Endocrine Disorders: No - MUSCULOSKELETAL Hx Musculoskeletal Disorders: No - PSYCH Hx Psych Problems: No - HEMATOLOGY/ONCOLOGY Hx Hematology/Oncology Disorders: No Family Medical History Hx Diabetes: Father Physical Exam - General General Appearance: Alert, Oriented x3, Cooperative, No acute distress Limitations: No limitations - Head Head exam: Atraumatic, Normal inspection - Eye Eye exam: Normal appearance. negative: Conjunctival injection - ENT ENT exam: Normal exam, Mucous membranes moist, Normal orophraynx Ear exam: Normal external inspection Nasal Exam: Discharge Mouth exam: Normal external inspection Teeth exam: Normal inspection Throat exam: Tonsillar erythema, Tonsillomegaly, Tonsillar exudate. negative: Normal inspection, R peritonsillar mass, L peritonsillar mass - Neck Neck exam: Normal inspection, Lymphadenopathy (few small mobile anterior LN), Tenderness. negative: Meningismus - Respiratory Respiratory exam: Normal lung sounds bilaterally, Other (frequent cough). negative: Accessory muscle use, Chest wall tenderness, Prolonged expiratory, Respiratory distress, Rhonchi, Stridor, Wheezes - Cardiovascular Cardiovascular Exam: Regular rate, Normal rhythm, Normal heart sounds - Rectal Rectal exam: Deferred - exam: Deferred - Extremities Extremities exam: Normal inspection - Back Back exam: Denies: CVA tenderness (R), CVA tenderness (L) - Neurological Neurological exam: Alert, Normal gait, Oriented X3 - Psychiatric Psychiatric exam: Normal affect, Normal mood. negative: Agitated, Anxious - Skin Skin exam: Dry, Intact, Normal color, Warm Course - Reevaluation(s) Reevaluation #1: EMR reviewed Strep Negative on 09/0309/16/18 09:25 No significant abnormalities on vitals 09/16/18 09:38 09/16/18 10:04 The influenza are negative Disposition Disposition: Discharge Clinical Impression: Tonsillitis, Bronchitis Disposition: Home, Self-Care Condition: (1) Good Instructions: Acute Bronchitis (ED), Tonsillitis (ED) Additional Instructions: Rest and stay hydrated Tylenol or Motrin for discomfort Call your doctor for close follow up this week if not improving Take the prescriptions as directed Prescriptions: Azithromycin [Zithromax] 250 mg PO DAILY #4 tab Benzonatate [Tessalon] 2 cap PO Q8H PRN #24 cap PRN Reason: Cough Forms: Patient Portal Access Time of Disposition: 09:46 Quality - Quality Measures Quality Measures: N/A - Blood Pressure Screening Does Patient Have Any of the Following: No Blood Pressure Classification: Pre-Hypertensive BP Reading Systolic Measurement: 124 Diastolic Measurement: 79 Screening for High Blood Pressure: < Pre-Hypertensive BP, F/U Documented > [ G8950] Pre-Hypertensive Follow-up Interventions: Referral to alternative/primary care provider.
[2018-09-16] MEDS ORDERED: AZITHROMYCIN 500 MG TABLET PO ONE (09:35)
[2018-09-16] MEDS ORDERED: BENZONATATE 100 MG CAPSULE PO ONE (09:35)
[2018-09-16] MEDS ORDERED: DEXAMETHASONE SOD PHOSPHATE 10MG/ML VIAL PO ONE (09:35)
[2018-09-16 09:56] LABS: INFLUENZA A NEGATIVE (NEGATIVE); INFLUENZA B NEGATIVE (NEGATIVE)
== END 2018-09-16 10:25 | disposition home or self-care (01) ==
LOC: ER 09:18
DX: J20.9 Acute bronchitis, unspecified (principal); J03.90 Acute tonsillitis, unspecified; F17.210 Nicotine dependence, cigarettes, uncomplicated
CPT/HCPCS: 87400; 99282

== ENCOUNTER 2018-09-20 20:57 | Emergency (ER) | payer MEDICAID ==
[2018-09-20 21:31] LABS: URINE APPEARANCE CLEAR; URINE BILIRUBIN NEGATIVE (NEGATIVE); URINE BLOOD NEGATIVE (NEGATIVE); URINE COLOR DARK YELLOW; URINE GLUCOSE (UA) NEGATIVE (NEGATIVE); URINE KETONE 40 mg/dL (NEGATIVE)
[2018-09-20 21:32] LABS: HCG,QUALITATIVE URINE NEGATIVE (NEGATIVE); URINE LEUKOCYTE ESTERASE NEGATIVE (NEGATIVE); URINE NITRITE NEGATIVE (NEGATIVE); URINE PROTEIN TRACE (NEGATIVE); URINE UROBILINOGEN 0.2 E.U./dL (0.20 - 1.00)
[2018-09-20 21:33] LABS: URINE BACTERIA FEW; URINE EPITHELIAL CELLS >50 (FEW); URINE MUCUS HEAVY; URINE RBC 0 - 2 (NONE SEEN); URINE WBC 0 - 2 (0-2/hpf)
[2018-09-20 21:52] LABS: HEMATOCRIT 45.6 % (35.0-47.0); HEMOGLOBIN 15.7 gm/dl (11.6-16.0); MEAN CELL VOLUME 88.7 fl (81-97); MEAN CORPUSCULAR HEMOGLOBIN 30.5 pg (27-33); MEAN CORPUSCULAR HGB CONC 34.4 g/dl (32-36); MEAN PLATELET VOLUME 10.6 fl (7.4-10.4); PLATELET COUNT 223 K/uL (130-400); RED BLOOD COUNT 5.14 M/uL (3.80-5.40); RED CELL DISTRIBUTION WIDTH 14.1 % (11.5-14.5); WHITE BLOOD COUNT W/O DIFF 16.4 K/uL (4.2-12.2)
[2018-09-20] MEDS: ONDANSETRON HCL IV 4 MG/2 ML VIAL IV ONE (21:52)
[2018-09-20] MEDS: 0.9 % SODIUM CHLORIDE 1,000 ML BAG IV ONE ×2 (21:52→22:50)
[2018-09-20 22:06] LABS: BLOOD UREA NITROGEN 18 mg/dL (6-20); CREATININE 0.8 mg/dL (0.5-0.9); EST GLOMERULAR FILTRATION RATE > 60 mL/min
[2018-09-20 22:07] LABS: TOTAL PROTEIN 7.6 g/dL (6.6-8.7)
[2018-09-20 22:09] LABS: GLUCOSE,RANDOM 87 mg/dL (74-109)
[2018-09-20 22:11] LABS: ALB/GLOB RATIO 1.3 (1.1-1.8); ALBUMIN 4.3 g/dL (4.0-5.0); ALKALINE PHOSPHATASE 86 U/L (35-104); ALT/SGPT 18 U/L (<33); AST/SGOT 9 U/L (10.0-35.0); LIPASE 26 U/L (13-60)
[2018-09-20 22:45] LABS: ROTOVIRUS NOT DETECTED (NOT DETECT)
[2018-09-20] MEDS: ONDANSETRON HCL IV 4 MG/2 ML VIAL IVP ONE (22:50)
[2018-09-20] MEDS: KETOROLAC 30 MG/ML VIAL IVP ONE (22:51)
[2018-09-20 23:08] LABS: CRYPTOSPORIDIUM PARVUM ANTIGEN NOT DETECTED (NOT DETECT)
[2018-09-20 23:09] LABS: GIARDIA LAMBLIA ANTIGEN NOT DETECTED (NOT DETECT)
[2018-09-20 23:23] LABS: MOLECULAR C DIFF TOXIN SCREEN NOT DETECTED (NOT DETECT)
--- NOTE | 2018-09-20 23:37 | Emergency Department Record ---
History of Present Illness - General Chief Complaint: Abdominal Pain Stated Complaint: ABD PAIN AND VOMITING Time Seen by Provider: 09/20/18 21:10 Mode of Arrival: Ambulatory - History of Present Illness Onset/Timin -: Hour(s) Location: Epigastric Radiation: None Migration to: No migration Severity: Severe Severity scale (1-10): 10 Quality: Sharp, Stabbing Consistency: Constant Improves With: Vomiting Context: Recent antibiotic use Associated Symptoms: Diarrhea, Nausea, Vomiting - Related Data LMP (females 10-50): 3 weeks ago Patient : No Previous Rx's Medication Instructions Recorded Prednisone [Prednisone 20Mg] 40 mg PO DAILY #8 tab 09/03/18 Azithromycin [Zithromax] 250 mg PO DAILY #4 tab 09/16/18 Benzonatate [Tessalon] 2 cap PO Q8H PRN #24 cap 09/16/18 Ondansetron [Zofran Odt] 4 mg PO Q8H #7 tab.rapdis 09/20/18 Allergies Allergy/AdvReac Type Severity Reaction Status Date / Time latex Allergy RASH Verified 09/03/18 13:19 Travel Screening - Travel/Exposure Within Last 30 Days Have you traveled within the last 30 days?: No - Travel Symptoms Symptom Screening: Diarrhea, Vomiting, Stomach Pain Past Medical History - SOCIAL HISTORY Smoking Status: Current every day smoker Alcohol Use: Rare Drug Use: None - RESPIRATORY Hx Respiratory Disorders: Yes Hx Bronchitis: Yes - CARDIOVASCULAR Hx Cardio Disorders: No - NEURO Hx Neuro Disorders: No - GI Hx GI Disorders: Yes Hx Reflux: Yes (fair control) - Hx Genitourinary Disorders: No - ENDOCRINE Hx Endocrine Disorders: No - MUSCULOSKELETAL Hx Musculoskeletal Disorders: No - PSYCH Hx Psych Problems: No - HEMATOLOGY/ONCOLOGY Hx Hematology/Oncology Disorders: No Family Medical History Any Significant Family History?: Yes Hx Diabetes: Father Course Vital Signs 09/20/18 09/20/18 21:08 22:43 Temperature 97.7 F 98.6 F Pulse Rate 103 H Pulse Rate [ 103 H Pulse Ox Probe] Respiratory 16 18 Rate Blood Pressure 100/69 Blood Pressure 123/67 [Left Arm] Pulse Ox 99 100 - Reevaluation(s) Reevaluation #1: 09/20/18 23:32 pt feels better Reevaluation #2: 09/20/18 23:37 pt is finished w zithromax Medical Decision Making - Lab Data Result diagrams: 09/20/18 21:47 09/20/18 21:47 Lab Results 09/20/18 09/20/18 09/20/18 Range/Units 21:27 21:47 21:47 WBC 16.4 H (4.2-12.2) K/uL RBC 5.14 (3.80-5.40) M/uL Hgb 15.7 (11.6-16.0) gm/dl Hct 45.6 (35.0-47.0) % MCV 88.7 (81-97) fl MCH 30.5 (27-33) pg MCHC 34.4 (32-36) g/dl RDW 14.1 (11.5-14.5) % Plt Count 223 (130-400) K/uL MPV 10.6 H (7.4-10.4) fl Neutrophils % 80.0 (47-80) % Eosinophils % Not Reportable Basophils % Not Reportable Lymphocytes 14.0 L (16-45) % Monocytes 5.0 (0-9) % Eosinophil Count 1.0 (0-6) % Sodium 140 (136-145) mmol/L Potassium 3.7 (3.4-4.5) mmol/L Chloride 101 (98-107) mmol/L Carbon Dioxide 28.0 (22-29) mmol/L Anion Gap 11.0 (7-16) BUN 18 (6-20) mg/dL Creatinine 0.8 (0.5-0.9) mg/dL Estimated GFR > 60 mL/min Random Glucose 87 (74-109) mg/dL Calcium 9.4 (8.6-10.0) mg/dL Total Bilirubin 0.80 (0.2-1.0) mg/dL AST 9 L (10.0-35.0) U/L ALT 18 (<33) U/L Alkaline Phosphatase 86 (35-104) U/L Total Protein 7.6 (6.6-8.7) g/dL Albumin 4.3 (4.0-5.0) g/dL Globulin 3.3 (1.4-4.8) gm/dL Albumin/Globulin Ratio 1.3 (1.1-1.8) Lipase 26 (13-60) U/L Urine Color Dark yellow Urine Appearance Clear Urine pH 6.0 (5.0-8.0) Ur Specific [place] 1.030 (1.002-1.030) Urine Protein Trace H (NEGATIVE) Urine Glucose (UA) Negative (NEGATIVE) Urine Ketones 40 mg/dl H (NEGATIVE) Urine Blood Negative (NEGATIVE) Urine Nitrite Negative (NEGATIVE) Urine Bilirubin Negative (NEGATIVE) Urine Urobilinogen 0.2 (0.20 - 1.00) E.U./dL Ur Leukocyte Esterase Negative (NEGATIVE) Urine RBC 0 - 2 (NONE SEEN) Urine WBC 0 - 2 (0-2/hpf) Ur Epithelial Cells >50 (FEW) Urine Bacteria Few Urine Mucus Heavy Urine HCG, Qual Negative (NEGATIVE) Stool Occult Blood (NEGATIVE) Stool for White Cells (NO WBC'S) Rotavirus Antigen (NOT DETECT) C. difficile Ag & Toxin (NOT DETECT) Cryptosporid parvum Ag (NOT DETECT) Giardia lamblia Ag (NOT DETECT) 09/20/18 09/20/18 09/20/18 Range/Units 22:00 22:00 22:00 WBC (4.2-12.2) K/uL RBC (3.80-5.40) M/uL Hgb (11.6-16.0) gm/dl Hct (35.0-47.0) % MCV (81-97) fl MCH (27-33) pg MCHC (32-36) g/dl RDW (11.5-14.5) % Plt Count (130-400) K/uL MPV (7.4-10.4) fl Neutrophils % (47-80) % Eosinophils % Basophils % Lymphocytes (16-45) % Monocytes (0-9) % Eosinophil Count (0-6) % Sodium (136-145) mmol/L Potassium (3.4-4.5) mmol/L Chloride (98-107) mmol/L Carbon Dioxide (22-29) mmol/L Anion Gap (7-16) BUN (6-20) mg/dL Creatinine (0.5-0.9) mg/dL Estimated GFR mL/min Random Glucose (74-109) mg/dL Calcium (8.6-10.0) mg/dL Total Bilirubin (0.2-1.0) mg/dL AST (10.0-35.0) U/L ALT (<33) U/L Alkaline Phosphatase (35-104) U/L Total Protein (6.6-8.7) g/dL Albumin (4.0-5.0) g/dL Globulin (1.4-4.8) gm/dL Albumin/Globulin Ratio (1.1-1.8) Lipase (13-60) U/L Urine Color Urine Appearance Urine pH (5.0-8.0) Ur Specific [place] (1.002-1.030) Urine Protein (NEGATIVE) Urine Glucose (UA) (NEGATIVE) Urine Ketones (NEGATIVE) Urine Blood (NEGATIVE) Urine Nitrite (NEGATIVE) Urine Bilirubin (NEGATIVE) Urine Urobilinogen (0.20 - 1.00) E.U./dL Ur Leukocyte Esterase (NEGATIVE) Urine RBC (NONE SEEN) Urine WBC (0-2/hpf) Ur Epithelial Cells (FEW) Urine Bacteria Urine Mucus Urine HCG, Qual (NEGATIVE) Stool Occult Blood Negative (NEGATIVE) Stool for White Cells No wbc's observed (NO WBC'S) Rotavirus Antigen Not detected (NOT DETECT) C. difficile Ag & Toxin Not detected (NOT DETECT) Cryptosporid parvum Ag Not detected (NOT DETECT) Giardia lamblia Ag Not detected (NOT DETECT) Disposition Disposition: Discharge Clinical Impression: Dehydration Vomiting Qualifiers: Vomiting type: unspecified Vomiting Intractability: non-intractable Nausea presence: with nausea Qualified Code(s): R11.2 - Nausea with vomiting, unspecified Diarrhea Qualifiers: Diarrhea type: infectious Qualified Code(s): A09 - Infectious gastroenteritis and colitis, unspecified Disposition: Home, Self-Care Condition: (1) Good Instructions: Acute Nausea and Vomiting (ED), Acute Diarrhea (ED) Additional Instructions: follow up with family doctor. return sooner if worse. push fluids. Prescriptions: Ondansetron [Zofran Odt] 4 mg PO Q8H #7 tab.rapdis Quality - Quality Measures Quality Measures: N/A - Blood Pressure Screening Does Patient Have Any of the Following: No Blood Pressure Classification: Normal BP Reading Systolic Measurement: 100 Diastolic Measurement: 69 Screening for High Blood Pressure: < Normal BP, F/U Not Required > [G8783]
== END 2018-09-20 23:50 | disposition home or self-care (01) ==
LOC: ER 20:57
DX: A09 Infectious gastroenteritis and colitis, unspecified (principal); E86.0 Dehydration; R10.13 Epigastric pain; R11.2 Nausea with vomiting, unspecified; F17.210 Nicotine dependence, cigarettes, uncomplicated
CPT/HCPCS: 99284 ×2; 96376; 96374; 96375; 96361; 83690; 87329; 80053; 81001; 89055; 87425; 81025; 87427; 82272; 87493; 85027; J1885; J2405; J7030

== ENCOUNTER 2018-11-28 09:00 | Emergency (ER) | payer MEDICAID ==
--- NOTE | 2018-11-28 09:26 | Emergency Department Record ---
History of Present Illness - General Chief complaint: Abscess Stated complaint: BOIL ON LEFT BREAST Time Seen by Provider: 11/28/18 09:15 Source: Patient Mode of Arrival: Ambulatory Limitations: No limitations - History of Present Illness Initial comments: pt had small sore on nipple of l breast that started draining. pt concerned because her mom from breast cancer complaint: Abscess/boil Onset/Timin -: Days(s) Location: Chest Severity: Mild Quality: Aching Consistency: Constant Improves with: None Worsens with: Palpation Associated symptoms: Denies other symptoms Treatments Prior to Arrival: None - Related Data Home Medications Medication Instructions Recorded Confirmed Last Taken Cyclobenzaprine HCl [Flexeril] 5 mg PO TID 11/28/18 11/28/18 Unknown Previous Rx's Medication Instructions Recorded Cephalexin [Keflex] 500 mg PO TID #30 cap 11/28/18 Allergies Allergy/AdvReac Type Severity Reaction Status Date / Time latex Allergy RASH Verified 09/03/18 13:19 Travel Screening - Travel/Exposure Within Last 30 Days Have you traveled within the last 30 days?: No Review of Systems Reviewed: No additional complaints except as noted below Constitutional: Reports: As per HPI. Denies: Chills, Fever, Malaise, Night sweats, Weakness, Weight change Eyes: Reports: As per HPI. Denies: Eye discharge, Eye pain, Photophobia, Vision change ENT: Reports: As per HPI. Denies: Congestion, Dental pain, Ear pain, Epistaxis , Hearing loss, Throat pain Respiratory: Reports: As per HPI. Denies: Cough, Dyspnea, Hemoptysis, Stridor, Wheezes Cardiovascular: Reports: As per HPI. Denies: Arrhythmia, Chest pain, Dyspnea on exertion, Edema, Murmurs, Orthopnea, Palpitations, Paroxysmal nocturnal dyspnea, Rheumatic Fever, Syncope Endocrine: Reports: As per HPI. Denies: Fatigue, Heat or cold intolerance, Polydipsia, Polyuria Gastrointestinal: Reports: As per HPI. Denies: Abdominal pain, Constipation, Diarrhea, Hematemesis, Hematochezia, Melena, Nausea, Vomiting Genitourinary: Reports: As per HPI. Denies: Abnormal menses, Discharge, Dyspareunia, Dysuria, Frequency, Hematuria, Incontinence, Retention, Urgency Musculoskeletal: Reports: As per HPI. Denies: Arthralgia, Back pain, Gout, Joint swelling, Myalgia, Neck pain Skin: Reports: As per HPI. Denies: Bruising, Change in color, Change in hair/ nails, Lesions, Pruritus, Rash Neurological: Reports: As per HPI. Denies: Abnormal gait, Confusion, Headache, Numbness, Paresthesias, Seizure, Tingling, Tremors, Vertigo, Weakness Psychiatric: Reports: As per HPI. Denies: Anxiety, Auditory hallucinations, Depression, Homicidal thoughts, Suicidal thoughts, Visual hallucinations Hematological/Lymphatic: Reports: As per HPI. Denies: Anemia, Blood Clots, Easy bleeding, Easy bruising, Swollen glands Past Medical History - SOCIAL HISTORY Smoking Status: Current every day smoker - RESPIRATORY Hx Respiratory Disorders: Yes Hx Bronchitis: Yes - CARDIOVASCULAR Hx Cardio Disorders: No - NEURO Hx Neuro Disorders: No - GI Hx GI Disorders: Yes Hx Reflux: Yes (fair control) - Hx Genitourinary Disorders: No - ENDOCRINE Hx Endocrine Disorders: No - MUSCULOSKELETAL Hx Musculoskeletal Disorders: No - PSYCH Hx Psych Problems: No - HEMATOLOGY/ONCOLOGY Hx Hematology/Oncology Disorders: No Family Medical History Any Significant Family History?: Yes Hx Cancer: Mother *Cancer Comment: breast cancer Hx Diabetes: Father Physical Exam - General General Appearance: Alert, Oriented x3, Cooperative, Mild distress - Head Head exam: Normal inspection - Eye Eye exam: Normal appearance, PERRL, EOMI Pupils: Normal accommodation - ENT ENT exam: Normal exam, Mucous membranes moist, Normal external ear exam, Normal orophraynx Ear exam: Normal external inspection. negative: External canal tenderness Nasal Exam: Normal inspection. negative: Discharge, Sinus tenderness Mouth exam: Normal external inspection, Tongue normal Teeth exam: Normal inspection. negative: Dental caries Throat exam: Normal inspection. negative: Tonsillar erythema, Tonsillar exudate - Neck Neck exam: Normal inspection, Full ROM. negative: Tenderness - Respiratory Respiratory exam: Normal lung sounds bilaterally, Chest wall tenderness. negative: Respiratory distress - Cardiovascular Cardiovascular Exam: Regular rate, Normal rhythm, Normal heart sounds - GI/Abdominal GI/Abdominal exam: Soft, Normal bowel sounds. negative: Tenderness - Rectal Rectal exam: Deferred - exam: Deferred - Extremities Extremities exam: Normal inspection, Full ROM, Normal capillary refill. negative: Tenderness - Back Back exam: Reports: Normal inspection, Full ROM. Denies: Muscle spasm, Rash noted, Tenderness - Neurological Neurological exam: Alert, CN II-XII intact, Normal gait, Oriented X3 - Psychiatric Psychiatric exam: Normal affect, Normal mood - Skin Skin exam: Dry, Intact, Normal color, Warm Type of lesion: Abscess, Other (small open lesion w slight erytema, approx 1cm) Distribution of rash: Chest Course Vital Signs 11/28/18 09:04 Temperature 98.2 F Pulse Rate 64 Respiratory 20 Rate Blood Pressure 134/74 Pulse Ox 99 Disposition Disposition: Discharge Clinical Impression: Abscess Disposition: Home, Self-Care Condition: (1) Good Instructions: Abscess (ED) Additional Instructions: follow up with family doctor and have a mammogram. return sooner if worse. warm soaks Prescriptions: Cephalexin [Keflex] 500 mg PO TID #30 cap Quality - Quality Measures Quality Measures: N/A - Blood Pressure Screening Does Patient Have Any of the Following: No Blood Pressure Classification: Pre-Hypertensive BP Reading Systolic Measurement: 134 Diastolic Measurement: 74 Screening for High Blood Pressure: < Pre-Hypertensive BP, F/U Documented > [ G8950] Pre-Hypertensive Follow-up Interventions: Follow-up with rescreen every year.
== END 2018-11-28 09:38 | disposition home or self-care (01) ==
LOC: ER 09:00
DX: N61.1 Abscess of the breast and nipple (principal); F17.210 Nicotine dependence, cigarettes, uncomplicated
CPT/HCPCS: 99282

== ENCOUNTER 2019-05-16 12:42 | Emergency (ER) | payer MEDICAID ==
--- NOTE | 2019-05-16 13:03 | Emergency Department Record ---
History of Present Illness - General Chief Complaint: Abdominal Pain Stated Complaint: ABD PAIN Time Seen by Provider: 05/16/19 12:51 Source: Patient Mode of Arrival: Ambulatory Limitations: No limitations - History of Present Illness Initial Comments: The patient is here due to a 14 hour hx of sharp stabbing pelvic pain. The pain is intermittent and is much worse with any movement or walking and intermittently radiates up into the abdomen. She denies any vaginal discharge, bleeding, dysuria, fever, chills, nausea, or vomiting. Additionally the patient has had a normal appetite today. The patient has no hx of any abdominal surgeries but does have an IUD. MD Complaint: Other Onset/Timin -: Hour(s) Location: Suprapubic Radiation: None Migration to: No migration Severity: Moderate Severity scale (1-10): 7 Quality: Sharp Consistency: Intermittent Worsens With: Movement Associated Symptoms: Denies other symptoms - Related Data LMP (females 10-50): Unknown Previous Rx's Medication Instructions Recorded Naproxen [Naprosyn] 250 mg PO BID #14 tablet 05/16/19 Allergies Allergy/AdvReac Type Severity Reaction Status Date / Time latex Allergy RASH Verified 05/16/19 12:56 Travel Screening - Travel/Exposure Within Last 30 Days Have you traveled within the last 30 days?: No Review of Systems Constitutional: Denies: Chills, Fever Eyes: Denies: Eye discharge ENT: Denies: Congestion Respiratory: Denies: Cough, Dyspnea Past Medical History - SOCIAL HISTORY Smoking Status: Current every day smoker Alcohol Use: None Drug Use: None - RESPIRATORY Hx Respiratory Disorders: Yes Hx Bronchitis: Yes - CARDIOVASCULAR Hx Cardio Disorders: No - NEURO Hx Neuro Disorders: No - GI Hx GI Disorders: Yes Hx Reflux: Yes (fair control) - Hx Genitourinary Disorders: No - ENDOCRINE Hx Endocrine Disorders: No - MUSCULOSKELETAL Hx Musculoskeletal Disorders: No - PSYCH Hx Psych Problems: No - HEMATOLOGY/ONCOLOGY Hx Hematology/Oncology Disorders: No Family Medical History Any Significant Family History?: Yes Hx Cancer: Mother *Cancer Comment: breast cancer Hx Diabetes: Father Physical Exam - General General Appearance: Alert, Oriented x3, Cooperative, No acute distress - Head Head exam: Atraumatic, Normocephalic - Eye Eye exam: Normal appearance, PERRL - Neck Neck exam: Normal inspection, Full ROM. negative: Tenderness - Respiratory Respiratory exam: Normal lung sounds bilaterally. negative: Respiratory distress - Cardiovascular Cardiovascular Exam: Regular rate, Normal rhythm, Normal heart sounds - GI/Abdominal GI/Abdominal exam: Soft, Tenderness (There is diffuse mild lower abdominal tenderness.). negative: Distended, Guarding, Rebound, Rigid - exam: Normal bimanual exam, Normal external exam, Normal speculum exam. negative: Abnormal external exam, Adnexal mass (L), Adnexal mass (R), Adnexal tenderness (L), Adnexal tenderness (R), Cervical discharge, cervical motion tenderness, Enlarged uterus, Vaginal bleeding, Vaginal discharge, Vaginal erythema - Extremities Extremities exam: Normal inspection, Full ROM, Normal capillary refill. negative: Tenderness - Neurological Neurological exam: Alert. negative: Motor sensory deficit Course Vital Signs 05/16/19 12:51 Temperature 97.8 F Pulse Rate 73 Respiratory 20 Rate Blood Pressure 112/70 Pulse Ox 97 - Reevaluation(s) Reevaluation #1: The patient is resting comfortably at this time and did receive a Toradol shot. Due to the pelvic pain I do feel she will need a pelvic US but since we are not able to perform that here I did recommend transfer to a larger hospital. The patient chose [facility] so I did discuss the case with Dr. Rios in the ER and he did accept the patient in an ER to ER transfer. 05/16/19 13:39 Reevaluation #2: The patient is doing better at this time and the pain is much improved with the Toradol. 05/16/19 13:46 Medical Decision Making - Lab Data Result diagrams: 05/16/19 13:05 05/16/19 13:05 Disposition Disposition: Transfer Clinical Impression: Pelvic pain Disposition: Acute Care Hospital Transfer Transfer To: [facility] Reason For Transfer: US Accepting Physician: Gabriel Time Discussed w/Accepting Physician: 13:41 Condition: (2) Stable Additional Instructions: Please proceed directly to the ER at [facility] for further evaluation and a pelvic US. Do not eat or drink on the way. Prescriptions: Naproxen [Naprosyn] 250 mg PO BID #14 tablet Forms: Patient Portal Access Time of Disposition: 13:41 Quality - Quality Measures Quality Measures: N/A - Blood Pressure Screening View Details: Yes Does Patient Have Any of the Following: No Blood Pressure Classification: Normal BP Reading Systolic Measurement: 112 Diastolic Measurement: 70 Screening for High Blood Pressure: < Normal BP, F/U Not Required > [G6109]
[2019-05-16 13:19] LABS: ABSOLUTE NEUTROPHIL COUNT 6.35; BASO % 0.2 % (0-6); EOS % 1.1 % (0-6); GRAN % 63.1 % (47-80); HEMATOCRIT 41.6 % (35.0-47.0); HEMOGLOBIN 14.3 gm/dl (11.6-16.0); LYMPH % 26.3 % (16-45); MEAN CELL VOLUME 86.8 fl (81-97); MEAN CORPUSCULAR HEMOGLOBIN 29.9 pg (27-33); MEAN CORPUSCULAR HGB CONC 34.4 g/dl (32-36); MEAN PLATELET VOLUME 11.2 fl (7.4-10.4); MONO % 9.3 % (0-9); PLATELET COUNT 189 K/uL (130-400); RED BLOOD COUNT 4.79 M/uL (3.80-5.40); RED CELL DISTRIBUTION WIDTH 13.7 % (11.5-14.5); WHITE BLOOD COUNT W/O DIFF 10.1 K/uL (4.2-12.2)
[2019-05-16 13:21] LABS: URINE APPEARANCE CLEAR; URINE BILIRUBIN NEGATIVE (NEGATIVE); URINE BLOOD NEGATIVE (NEGATIVE); URINE COLOR YELLOW; URINE GLUCOSE (UA) NEGATIVE (NEGATIVE); URINE KETONE NEGATIVE (NEGATIVE); URINE LEUKOCYTE ESTERASE TRACE (NEGATIVE); URINE NITRITE NEGATIVE (NEGATIVE); URINE PROTEIN NEGATIVE (NEGATIVE)
[2019-05-16 13:28] LABS: BLOOD UREA NITROGEN 8 mg/dL (6-20); CREATININE 0.7 mg/dL (0.5-0.9); EST GLOMERULAR FILTRATION RATE > 60 mL/min; HCG,QUALITATIVE URINE NEGATIVE (NEGATIVE)
[2019-05-16 13:30] LABS: URINE BACTERIA FEW; URINE EPITHELIAL CELLS NONE SEEN (FEW); URINE SQUAMOUS EPITHELIAL CELL 21 - 35 /hpf; URINE WBC 0 - 2 (0-2/hpf)
[2019-05-16] MEDS ORDERED: KETOROLAC 30 MG/ML VIAL IM ONE (13:30)
[2019-05-16 13:31] LABS: GLUCOSE,RANDOM 107 mg/dL (74-109)
[2019-05-16 13:55] LABS: URINE RBC NONE SEEN (NONE SEEN)
[2019-05-18 20:25] LABS: GC SPECIMEN TYPE Vaginal
== END 2019-05-16 14:19 | disposition short-term general hospital (02) ==
LOC: ER 12:42
DX: R10.2 Pelvic and perineal pain (principal); F17.210 Nicotine dependence, cigarettes, uncomplicated
CPT/HCPCS: 80048; 81001; 81025; 85025; 87210; 96372; 99285; J1885